=== PATIENT | female | born 1950 ===

== ENCOUNTER 2023-08-05 05:55 | Day surgery (SDC) | payer OTHER | END 2023-08-05 12:15 | disposition home or self-care (01) | LOC: CIR.AMB 05:55 | PROVIDERS: ATTEND Colon & Rectal Surgery | DX: D12.8 Benign neoplasm of rectum (principal); K58.9 Irritable bowel syndrome, unspecified; K57.30 Diverticulosis of large intestine without perforation or abscess without bleeding; Z86.010 Personal history of colon polyps; K64.8 Other hemorrhoids; Z20.822 Contact with and (suspected) exposure to COVID-19 ==